=== PATIENT | male | born 1990 | race Caucasian/White ===

== ENCOUNTER 2021-11-03 07:15 | Inpatient (IN) | payer MEDICARE, MEDICAID ==
[2021-11-04] MEDS ORDERED: Celecoxib 200 MG Cap PO ONE (06:00)
[2021-11-04] MEDS ORDERED: Scopolamine 1.5 MG Transdermal Patch TOP ONE (06:00)
[2021-11-04] MEDS ORDERED: Acetaminophen 500 MG Tab PO ONE (06:00)
[2021-11-04] MEDS ORDERED: Dextrose 5%-Lactated Ringers 1,000 ML IV SCH (06:00)
[2021-11-04] MEDS ORDERED: Rocuronium 50 MG/5 ML Vial ONE (07:08)
[2021-11-04] MEDS ORDERED: Dexamethasone 4 MG/ML SDV ONE (07:08)
[2021-11-04] MEDS ORDERED: Ondansetron 4 MG/2 ML SDV ONE (07:08)
[2021-11-04] MEDS ORDERED: Propofol 200 MG/20 ML SDV ONE (07:08)
[2021-11-04] MEDS ORDERED: Glycopyrrolate 0.2 MG/ML 5 ML MDV ONE (07:08)
[2021-11-04] MEDS ORDERED: Succinylcholine 200 MG/10 ML MDV ONE (07:08)
[2021-11-04] MEDS ORDERED: Neostigmine Methylsulfate 1 MG/ML 5 ML Syringe ONE (07:08)
[2021-11-04] MEDS ORDERED: fentaNYL 250 MCG/5 ML SDV ONE ×3 (07:10→07:57)
[2021-11-04] MEDS ORDERED: cefOXitin 2 GM in Sodium Chloride 0.9% 50 ML IV ONE (07:15)
[2021-11-04] MEDS ORDERED: Ketamine 500 MG/5 ML MDV IV SCH (07:30)
[2021-11-04] MEDS ORDERED: Ketamine 24 MG in Sodium Chloride 0.9% 19.76 ML IV SCH (07:30)
[2021-11-04] MEDS: cefOXitin 2 GM Vial ONE ×2 (07:53→08:56)
[2021-11-04] MEDS ORDERED: hydrOXYzine HCL 100 MG/2 ML SDV IM ONE (09:28)
[2021-11-04] MEDS ORDERED: Cyclobenzaprine 10 MG Tab PO PRN (10:26)
[2021-11-04] MEDS ORDERED: Rizatriptan 10 MG Tab.DIS PO PRN (10:29)
[2021-11-04] MEDS: Dextrose 5%-Lactated Ringers 1,000 ML IV SCH ×2 (10:30→22:05)
[2021-11-04] MEDS ORDERED: NURTEC 75 MG PO PRN (10:35)
[2021-11-04] MEDS ORDERED: Temazepam 15 MG Cap PO PRN (10:36)
[2021-11-04] MEDS ORDERED: HYDROmorphone 0.5 MG/0.5 ML Syringe IVPUSH PRN (11:00)
[2021-11-04] MEDS ORDERED: Acetaminophen 500 MG Tab PO PRN (11:00)
[2021-11-04] MEDS ORDERED: HYDROmorphone 1 MG/ML Syringe IV PRN (11:00)
[2021-11-04] MEDS ORDERED: diphenhydrAMINE 50 MG/ML SDV IVPUSH PRN (11:00)
[2021-11-04] MEDS ORDERED: oxyCODONE 5 MG Tab PO PRN (11:00)
[2021-11-04] MEDS: hydrOXYzine HCL 100 MG/2 ML SDV IM PRN (12:12)
[2021-11-04] MEDS: cefOXitin 2 GM in Sodium Chloride 0.9% 50 ML IV SCH ×2 (13:47→19:48)
[2021-11-04] MEDS: Acetaminophen 500 MG Tab PO SCH ×2 (13:48→23:14)
[2021-11-04] MEDS: OXcarbazepine 300 MG Tab PO SCH ×3 (13:49→20:36)
[2021-11-04] MEDS ORDERED: Pantoprazole 40 MG Vial IVPUSH SCH (14:00)
[2021-11-04] MEDS: Ondansetron 4 MG/2 ML SDV IVPUSH PRN ×2 (15:39→22:04)
[2021-11-04] MEDS ORDERED: MVI, Adult with Vitamin K 10 ML, Thiamine 200 MG, Zinc/Copper/Manganese/Selenium 1 ML i... IV SCH ×4 (16:00)
[2021-11-04] MEDS: Heparin Sodium 5,000 Units/ML Vial SUBCUT SCH (17:45)
[2021-11-04] MEDS: traMADol 50 MG Tab PO PRN (19:51)
[2021-11-04] MEDS: DULoxetine 30 MG Cap PO SCH (20:36)
[2021-11-04] MEDS: Melatonin 3 MG Tab PO PRN (20:39)
[2021-11-04] MEDS: Temazepam 15 MG Cap PO PRN (20:43)
[2021-11-04] MEDS: Labetalol 20 MG/4 ML Syringe IVPUSH PRN (23:57)
[2021-11-05] MEDS: Labetalol 20 MG/4 ML Syringe IVPUSH PRN ×3 (00:07→04:14)
[2021-11-05] MEDS: Metoclopramide 10 MG/2 ML SDV IVPUSH PRN ×2 (00:23→19:40)
[2021-11-05] MEDS: cefOXitin 2 GM in Sodium Chloride 0.9% 50 ML IV SCH ×3 (02:39→14:18)
[2021-11-05] MEDS: traMADol 50 MG Tab PO PRN ×2 (02:40→17:32)
[2021-11-05] MEDS: Dextrose 5%-Lactated Ringers 1,000 ML IV SCH ×2 (02:43→14:17)
[2021-11-05] MEDS ORDERED: Iopamidol 612 MG/ML 50 ML SDV PO ONE (02:49)
[2021-11-05] MEDS: Acetaminophen 500 MG Tab PO SCH ×3 (06:07→23:02)
[2021-11-05] MEDS: Heparin Sodium 5,000 Units/ML Vial SUBCUT SCH ×2 (06:08→17:28)
[2021-11-05] MEDS: hydrOXYzine HCL 100 MG/2 ML SDV IM PRN (06:09)
[2021-11-05] MEDS ORDERED: hydrOXYzine HCl 25 MG Tab PO PRN (07:10)
[2021-11-05] MEDS: DULoxetine 30 MG Cap PO SCH ×2 (08:06→21:25)
[2021-11-05] MEDS: ARIPiprazole 10 MG Tab PO SCH (08:07)
[2021-11-05] MEDS: Celecoxib 200 MG Cap PO SCH ×2 (08:07→21:25)
[2021-11-05] MEDS: Hydrochlorothiazide 12.5 MG Cap PO SCH (08:08)
[2021-11-05] MEDS: Lisinopril 10 MG Tab PO SCH (08:08)
[2021-11-05] MEDS: SCOPOLAMINE PATCH CHECK TOP SCH (08:08)
[2021-11-05] MEDS: OXcarbazepine 300 MG Tab PO SCH ×2 (08:09→21:25)
[2021-11-05] MEDS: Fluticasone Propionate Nasal Spray 16 GM Bottle NASBOTH SCH (08:11)
[2021-11-05] MEDS: Pantoprazole 40 MG Delayed-Release Granules 1 Packet PO SCH (14:19)
[2021-11-05] MEDS ORDERED: MVI, Adult with Vitamin K 10 ML, Thiamine 200 MG, Zinc/Copper/Manganese/Selenium 1 ML i... IV SCH ×4 (16:00)
[2021-11-05] MEDS: Ondansetron 4 MG Tab.DIS PO PRN ×2 (17:37→23:01)
[2021-11-05] MEDS: Melatonin 3 MG Tab PO PRN (21:25)
[2021-11-05] MEDS: Temazepam 15 MG Cap PO PRN (21:26)
[2021-11-06] MEDS: Dextrose 5%-Lactated Ringers 1,000 ML IV SCH (03:23)
[2021-11-06] MEDS: Heparin Sodium 5,000 Units/ML Vial SUBCUT SCH (05:02)
[2021-11-06] MEDS: Acetaminophen 500 MG Tab PO SCH ×2 (05:03→14:35)
[2021-11-06] MEDS ORDERED: Magnesium Hydroxide 400 MG/5 ML Susp 30 ML Cup PO PRN (07:14)
[2021-11-06] MEDS: Celecoxib 200 MG Cap PO SCH (08:10)
[2021-11-06] MEDS: ARIPiprazole 10 MG Tab PO SCH (08:10)
[2021-11-06] MEDS: DULoxetine 30 MG Cap PO SCH (08:11)
[2021-11-06] MEDS: Fluticasone Propionate Nasal Spray 16 GM Bottle NASBOTH SCH (08:11)
[2021-11-06] MEDS: SCOPOLAMINE PATCH CHECK TOP SCH (08:12)
[2021-11-06] MEDS: Lisinopril 10 MG Tab PO SCH (08:12)
[2021-11-06] MEDS: Hydrochlorothiazide 12.5 MG Cap PO SCH (08:12)
[2021-11-06] MEDS ORDERED: Cyanocobalamin (Vitamin B12) 1,000 MCG/ML SDV IM ONE (09:00)
[2021-11-06] MEDS: OXcarbazepine 300 MG Tab PO SCH (10:07)
[2021-11-06] MEDS: Pantoprazole 40 MG Delayed-Release Granules 1 Packet PO SCH (14:37)
== END 2021-11-06 15:53 | disposition home or self-care (01) | DRG 620 ==
LOC: JP.SDS 11-04 05:22 → JP.SDSSCHI 11-04 05:22 → EDSTATUS 11-04 07:15 → JP.MS 11-04 09:25 → UNDOADMIN 11-04 10:21
PROVIDERS: ADMIT Surgery; ATTEND Surgery
PROC: 0D164ZA Bypass Stomach to Jejunum, Percutaneous Endoscopic Approach (ICD-10-PCS; principal; 2021-11-04)
PROC: 0FB24ZX Excision of Left Lobe Liver, Percutaneous Endoscopic Approach, Diagnostic (ICD-10-PCS; 2021-11-04)
PROC: 0BQT4ZZ Repair Diaphragm, Percutaneous Endoscopic Approach (ICD-10-PCS; 2021-11-04)
PROC: 0JB63ZZ Excision of Chest Subcutaneous Tissue and Fascia, Percutaneous Approach (ICD-10-PCS; 2021-11-04)
DX: E66.01 Morbid (severe) obesity due to excess calories (principal); F84.0 Autistic disorder; F84.8 Other pervasive developmental disorders; Z68.36 Body mass index [BMI] 36.0-36.9, adult; I10 Essential (primary) hypertension; F42.9 Obsessive-compulsive disorder, unspecified; G43.909 Migraine, unspecified, not intractable, without status migrainosus; E78.5 Hyperlipidemia, unspecified; E03.9 Hypothyroidism, unspecified; G47.33 Obstructive sleep apnea (adult) (pediatric)
CPT/HCPCS: 36415; 74240; 74240-26; 80053; 83735; 84100; 84443; 85025; 86850; 86900; 86901; 88305; 88307; 88313; A9270-GY; C9113; J0171; J0330; J0694; J1100; J1644; J2405; J2704; J2710; J2765; J2795; J3010; J3410; J3411; J3420; J3490; J7030; J7121; Q9967

== ENCOUNTER 2023-02-16 08:01 | Day surgery (SDC) | payer MEDICARE, MEDICAID ==
[~2023-02-16 08:01] MED LIST: Dexamethasone 4 MG/ML SDV ONE; Glycopyrrolate 0.2 MG/ML 5 ML MDV ONE; Neostigmine Methylsulfate 1 MG/ML 5 ML Syringe ONE; Ondansetron 4 MG/2 ML SDV ONE; Propofol 200 MG/20 ML SDV ONE; Rocuronium 50 MG/5 ML Vial ONE; Succinylcholine 200 MG/10 ML MDV ONE; fentaNYL 250 MCG/5 ML SDV ONE
[2023-02-16] MEDS ORDERED: Dextrose 5%-Lactated Ringers 1,000 ML IV SCH (08:30)
[2023-02-16] MEDS ORDERED: Indocyanine Green 25 MG SDV IV ONE (09:00)
[2023-02-16] MEDS ORDERED: cefOXitin 2 GM in Sodium Chloride 0.9% 50 ML IV ONE (09:15)
[2023-02-16] MEDS ORDERED: Ketamine 25 MG in Sodium Chloride 0.9% 19.75 ML IV SCH (09:30)
[2023-02-16] MEDS ORDERED: Ketamine 500 MG/5 ML MDV IV SCH (09:30)
[2023-02-16] MEDS ORDERED: fentaNYL 250 MCG/5 ML SDV ONE (10:09)
[2023-02-16] MEDS: Bupivacaine 0.5% 50 ML MDV ONE ×2 (10:30→12:22)
[2023-02-16] MEDS: Lidocaine 1% with EPINEPHrine 1:100,000 50 ML MDV ONE ×2 (10:30→12:23)
[2023-02-16] MEDS ORDERED: Lactated Ringers 1,000 ML ONE (10:46)
[2023-02-16] MEDS ORDERED: Ketorolac 30 MG/ML SDV ONE (11:00)
[2023-02-17] MEDS ORDERED: Indocyanine Green 25 MG SDV IV SCH (09:00)
== END 2023-02-16 14:55 | disposition home or self-care (01) ==
LOC: JP.SDS 08:01
PROVIDERS: ATTEND Surgery
DX: K80.10 Calculus of gallbladder with chronic cholecystitis without obstruction (principal); I10 Essential (primary) hypertension; E78.5 Hyperlipidemia, unspecified; E03.9 Hypothyroidism, unspecified; F42.9 Obsessive-compulsive disorder, unspecified; E66.9 Obesity, unspecified; Z79.890 Hormone replacement therapy; Z79.899 Other long term (current) drug therapy; Z88.0 Allergy status to penicillin; Z88.1 Allergy status to other antibiotic agents
CPT/HCPCS: 88304; J0131; J0171; J0330; J0694; J1100; J1885; J2405; J2704; J2710; J2795; J3010; J3490; J7120; J7121